=== PATIENT | female | born 1945 | race Two or more races ===

== ENCOUNTER 2021-03-03 19:14 | Emergency (ER) | payer OTHER, MEDICAID ==
[~2021-03-03] VITALS: Ht 157.5 cm; Wt 106.6 kg
[2021-03-03 19:23] VITALS: BP 132/72
[2021-03-03 20:15] LABS: Basophils # (auto) 0.1 10 ^3/uL (0-0.2); Basophils % (auto) 0.7 % (0.0-2.0); Eosinophils # (auto) 0.1 10 ^3/uL (0-0.8); Eosinophils % (auto) 0.9 % (0.0-7.0); Hematocrit 33.9 % (36.0-46.0); Hemoglobin 11.6 g/dL (12.2-16.2); Lymphocytes # (auto) 2.6 10 ^3/uL (0.4-5.4); Lymphocytes % (auto) 31.1 % (10.0-50.0); Mean Corpuscular Hemoglobin 30.4 pg (28.0-32.0); Mean Corpuscular Hgb Conc. 34.2 g/dL (32.0-36.0); Mean Corpuscular Volume 88.7 fL (80.0-100.0); Monocytes # (auto) 0.6 10 ^3/uL (0-1.3); Monocytes % (auto) 6.9 % (0.0-12.0); Neutrophils % (auto) 60.4 % (37.0-80.0); Nucleated Red Blood Cells % 0.1 %; Platelet Count (auto) 363 10^3/uL (140-450); Red Blood Cells 3.82 10^6/uL (4.0-5.20); White Blood Cell 8.3 10^3/uL (4.4-10.8)
[2021-03-03 20:34] LABS: Albumin 3.2 g/dL (3.4-5.0); Anion Gap 6 (5-15); Blood Urea Nitrogen 17 mg/dL (7-18); Calcium 9.1 mg/dL (8.5-10.1); Carbon Dioxide 25 mmol/L (21-32); Chloride 103 mmol/L (98-107); Glucose 101 mg/dL (74-106); Potassium 4.4 mmol/L (3.5-5.1); Sodium 134 mmol/L (136-145)
[2021-03-03 20:40] LABS: Alanine Aminotransferase 25 U/L (13-56); Alkaline Phosphatase 155 U/L (45-117); Aspartate Aminotransferase 20 U/L (15-37); BUN/Creatinine Ratio 16.3; Bilirubin, Total 0.3 mg/dL (0.2-1.0); GFR African American 67 mL/min; GFR Non-African American 55 mL/min; Total Protein 8.4 g/dL (6.4-8.2)
== END 2021-03-04 00:40 | disposition left against medical advice (07) ==
LOC: ER 19:16
DX: R22.42 Localized swelling, mass and lump, left lower limb (principal); Z53.21 Procedure and treatment not carried out due to patient leaving prior to being seen by health care provider
CPT/HCPCS: 36415; 80053; 83880; 84484; 85025; 85049

== ENCOUNTER 2024-05-08 18:07 | Emergency (ER) | payer OTHER, MEDICAID ==
[2024-05-08 18:07] VITALS: BP 122/57; PULSE 106; RESP 18; TEMP 97.5; O2SAT 97
[2024-05-08 19:40] LABS: Basophils # (auto) 0 10 ^3/uL (0-0.2); Basophils % (auto) 0.4 % (0.0-2.0); Eosinophils # (auto) 0.2 10 ^3/uL (0-0.8); Hematocrit 35.5 % (36.0-46.0); Hemoglobin 12.2 g/dL (12.2-16.2); Lymphocytes # (auto) 3.7 10 ^3/uL (0.4-5.4); Lymphocytes % (auto) 44.7 % (10.0-50.0); Mean Corpuscular Hemoglobin 30.6 pg (28.0-32.0); Mean Corpuscular Hgb Conc. 34.3 g/dL (32.0-36.0); Mean Corpuscular Volume 89.1 fL (80.0-100.0); Monocytes # (auto) 0.5 10 ^3/uL (0-1.3); Monocytes % (auto) 5.6 % (0.0-12.0); Neutrophils # (auto) 3.9 10 ^3/uL (1.6-8.6); Neutrophils % (auto) 47.3 % (37.0-80.0); Platelet Count (auto) 232 10^3/uL (140-450); Red Blood Cells 3.99 10^6/uL (4.0-5.20); Red Cell Distribution Width 14.6 % (11.8-14.3); White Blood Cell 8.3 10^3/uL (4.4-10.8)
[2024-05-08] MEDS ORDERED: CLIN1CAP70 PO (20:43)
[2024-05-08] MEDS ORDERED: AMIT75TA6 PO (20:43)
[2024-05-08] MEDS: CLINDAMYCIN 600MG IV 50 ML IV ONE (21:25)
[2024-05-08] MEDS: cefTRIAXone 1GM/50ML D5W 50 ML IV ONE (21:26)
== END 2024-05-08 22:33 | disposition home or self-care (01) ==
LOC: ER 18:07
DX: L03.116 Cellulitis of left lower limb (principal); G62.9 Polyneuropathy, unspecified; F41.9 Anxiety disorder, unspecified; Z76.0 Encounter for issue of repeat prescription; Z98.890 Other specified postprocedural states; Z79.899 Other long term (current) drug therapy
CPT/HCPCS: 36415; 73562; 85025; 86141; 96365; 96368; 99284; J0696; J3490

== ENCOUNTER 2025-08-05 16:58 | Emergency (ER) | payer MEDICARE, MEDICAID ==
[~2025-08-05] VITALS: Ht 157.5 cm; Wt 93.4 kg
[~2025-08-05 16:58] MED LIST: AMIT75TA6 PO; CLIN1CAP70 PO
[2025-08-05 17:06] VITALS: BP 139/71; PULSE 99; RESP 16; TEMP 97.8; O2SAT 95
--- NOTE | 2025-08-05 17:59 | ECG ---
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
--- NOTE | 2025-08-05 18:17 | DVH ---
CT HEAD WITHOUT CONTRAST Indication: LEFT SIDE WEAKNESS EXAM DATE: 08/05/2025 05:38 PM COMPARISON: None TECHNIQUE: CT of the head without intravenous contrast. RADIATION DOSE: CTDIvol: 55.89 mGy, DLP: 989.62 mGy*cm FINDINGS: There is no intracranial hemorrhage. There is no extra-axial fluid, mass, mass effect or midline shift. The ventricles are midline and normal in size. Basilar cisterns are patent. There are mild periventricular and subcortical white matter chronic microvascular ischemic changes. There is mild global cerebral volume loss. The paranasal sinuses and mastoids are well-pneumatized. Imaged portion of the orbits are unremarkable. IMPRESSION: No intracranial hemorrhage or mass effect. Mild chronic microvascular ischemic changes. Mild global cerebral volume loss.
--- NOTE | 2025-08-05 18:30 | ED.PDOC ---
HPI (NEURO) HPI Comments 80 y/o F, with PMHx of anxiety presents to the ED for CC of left-sided weakness. Patient's family reports, patient woke up yesterday morning (08/04/25) with a left sided facial droop and slurred speech. Upon arrival to the ED, patient is able to answer questions appropriately and has strong bilateral hand studio operations engineer in charge; patient is noted to have facial drooping to her left side along with difficult speech. Patient denies confusion, disorientation, changes in vision, or numbness or weakness to her extremities. Chief Complaint: Left Sided Weakness Time Seen by MD: 18:25 Primary Care Provider: UNKNOWN Reviewed Notes: Nurses Notes, Medications, Allergies Information Source: Patient Mode of Arrival: Wheelchair Severity: Moderate Timing: Days Duration: Since onset Prehospital treatment: None Weakness Location: Facial (left sided) Circumstances: Spontaneous Symptoms: Weakness, Difficult speech Associated Signs and Symptoms: Weakness Past Medical History PAST MEDICAL HISTORY: Anxiety Surgical History: Denies all surgeries ABALONE PROCESSOR History: Denies all ABALONE PROCESSOR Hx Family History Family History: Unknown Social History Smoker: Non-Smoker Alcohol: Denies ETOH Use Drugs: Denies Drug Use Lives In: Home Constitutional: denies: chills, diaphoresis, fatigue, fever, malaise, sweats, weakness, others EENTM: denies: blurred vision, double vision, ear bleeding, ear discharge, ear drainage, ear pain, ear ringing, eye pain, eye redness, hearing loss, mouth pain, mouth swelling, nasal discharge, nose bleeding, nose congestion, nose pain, photophobia, tearing, throat pain, throat swelling, voice changes, others Respiratory: denies: cough, hemoptysis, orthopnea, SOB at rest, shortness of breath, SOB with excertion, stridor, wheezing, others Cardiovascular: denies: chest pain, dizzy spells, diaphoresis, Dyspnea on exertion, edema, irregular heart beat, left arm pain, lightheadedness, palpitations, PND, syncope, others Gastrointestinal: denies: abdomen distended, abdominal pain, blood streaked bowels, constipated, diarrhea, dysphagia, difficulty swallowing, hematemesis, melena, nausea, poor appetite, poor fluid intake, rectal bleeding, rectal pain, vomiting, others Genitourinary: denies: abnormal vagina bleeding, burning, dyspareunia, dysuria, flank pain, frequency, hematuria, incontinence, pain, , vagina discharge, urgency, others Neurological: reports: left sided weakness; denies: dizziness, fainting, headache, left sided numbness, numbness, paresthesia, pre-existing deficit, right sided numbness, right sided weakness, seizure, speech problems, tingling, tremors, weakness, others Musculoskeletal: denies: back pain, gout, joint pain, joint swelling, muscle pain, muscle stiffness, neck pain, others Integumetry: denies: bruises, change in color, change in hair/nails, dryness, laceration, lesions, lumps, rash, wounds, others Allergic/Immunocompromised: denies: Difficulty Healing, Frequent Infections, Hives, Itching, others Hematologic/Lymphatic: denies: anemia, blood clots, easy bleeding, easy bruising, swollen glands, others Endocrine: denies: excessive hunger, excessive sweating, excessive thirst, excessive urination, flushing, intolerance to cold, intolerance to heat, unexplained weight gain, unexplained weight loss, others Psychiatric: denies: anxiety, bipolar disorder, depression, hopeless, panic disorder, schizophrenia, sleepless, suicidal, others All Other Systems: Reviewed and Negative Physical Exam General Appearance: Mild Distress HEENT: Normal ENT Inspection, Pharynx Normal, TMs Normal Neck: Full Range of Motion, Non-Tender, Normal, Normal Inspection Respiratory: Chest Non-Tender, Lungs Clear, No Accessory Muscle Use, No Respiratory Distress, Normal Breath Sounds Cardiovascular: No Edema, No JVD, No Murmur, No Gallop, Normal Peripheral Pulses, Regular Rate/Rhythm Breast Exam: Deferred Gastrointestinal: No Organomegaly, Non Tender, No Pulsatile Mass, Normal Bowel Sounds, Soft Genitalia: Deferred Pelvic: Deferred Rectal: Deferred Extremities: No calf tenderness, Normal capillary refill, Normal inspection, Normal range of motion, Non-tender, No pedal edema Musculoskeletal : Apperance: Normal Neurologic: Alert, Facial Droop (Left-sided facial droop including the forehead), No Sensory Deficits Cerebellar Function: Normal Reflexes: Normal Skin: Dry, Normal Color, Warm Lymphatic: No Adenopathy Was a procedure done? Was a procedure done?: No Differential Diagnosis (SZ) Seizure: N/A CVA: Jordan's Palsy, CVA, Electrolyte Imbalance, TIA X-Ray, Labs, Meds, VS Vital Signs Date Time Temp Pulse Resp B/P (MAP) Pulse Ox O2 Delivery O2 Flow Rate FiO2 08/05/25 17:06 99 08/05/25 17:06 97.8 98 16 139/71 95 97.8 Lab Test 08/05/25 17:08 Range/Units POC Glucose 122 H 70-106 mg/dl [address] [address] Ph: [phone] DIAGNOSTIC IMAGING Diagnostic Imaging Report : [id number] Signed PATIENT: ELANA LAMAR ACCT: [id number] UNIT: [id number] : 1945 LOC: ER ROOM / BED: / AGE / SEX: 80 / F ADM STATUS: REG ER SERVICE 20 ORDERING PHYSICIAN: KARLA BARKLEY MD PROCEDURE(s): HWOCT - HEAD WITHOUT CONTRAST REASON: LEFT SIDE WEAKNESS ORDER NUMBER(s): [id number], ACCESSION NUMBER(s): [id number] CT HEAD WITHOUT CONTRAST Indication: LEFT SIDE WEAKNESS EXAM DATE: 08/05/2025 05:38 PM COMPARISON: None TECHNIQUE: CT of the head without intravenous contrast. RADIATION DOSE: CTDIvol: 55.89 mGy, DLP: 989.62 mGy*cm FINDINGS: There is no intracranial hemorrhage. There is no extra-axial fluid, mass, mass effect or midline shift. The ventricles are midline and normal in size. Basilar cisterns are patent. There are mild periventricular and subcortical white matter chronic microvascular ischemic changes. There is mild global cerebral volume loss. The paranasal sinuses and mastoids are well-pneumatized. Imaged portion of the orbits are unremarkable. IMPRESSION: No intracranial hemorrhage or mass effect. Mild chronic microvascular ischemic changes. Mild global cerebral volume loss. ATED BY: COOPER CORTÉS MD DICTATED DATE/TIME: 08/05/251818 SIGNED BY: COOPER CORTÉS MD SIGNED DATE/TIME: 08/05/251818 CC: At this time, the patient is being discharged and will follow up with the primary care doctor The patient will return to the emergency department's the condition worsens. Images Reviewed?: Images reviewed and evaluated by me Time of 1ST Reevaluation: 18:55 Reevaluation 1ST: Unchanged Patient Education/Counseling: Diagnosis, Treatment, Prognosis, Need For Follow Up Family Education/Counseling: Diagnosis, Treatment, Prognosis, Need For Follow Up Departure 1 Departure Time of Disposition: 18:36 Impression: Primary Impression: Jordan's palsy Disposition: HOME / SELF CARE / HOMELESS Condition: Fair e-Prescriptions Methylprednisolone (Medrol Dosepak) 4 Mg Rahul 4 MG PO UD, #21 TAB UAD Prov: HALIMA OLIVAREZ MD 08/05/25 Discharged With: Self, Relative Critical Care Note Critical Care Time?: No Stability Stability form required: No Heart Score Heart Score: Heart Score Response (Comments) Value History N/A 0 EKG N/A 0 Age N/A 0 Risk Factors N/A 0 Troponin N/A 0 Total 0 I personally scribed for HALIMA OLIVAREZ MD ([email or web address]) on 08/05/25 at 18:30. Electronically submitted by Ritu Palomo ([employer]). I personally scribed for HALIMA OLIVAREZ MD ([email or web address]) on 08/05/25 at 18:33. Electronically submitted by Ritu Palomo ([employer]). I personally scribed for HALIMA OLIVAREZ MD ([email or web address]) on 08/05/25 at 18:34. Electronically submitted by Ritu Palomo ([employer]). HALIMA OLIVAREZ MD Aug 05, 2025 18:30
[2025-08-05] MEDS ORDERED: METH4PAK PO (18:36)
== END 2025-08-05 22:46 | disposition home or self-care (01) ==
LOC: ER 16:58
DX: G51.0 Bell's palsy (principal); F41.9 Anxiety disorder, unspecified; Z79.899 Other long term (current) drug therapy
CPT/HCPCS: 70450; 82947; 82962; 93005